=== PATIENT | female | born 1975 | race Caucasian/White ===

== ENCOUNTER 2018-04-09 12:34 | Emergency (ER) | payer OTHER ==
[2018-04-09] MEDS: SOD CHLORIDE 0.9% 1,000 ML IV (14:58)
[2018-04-09] MEDS: METOCLOPRAMIDE 10 MG INJ IV (14:59)
[2018-04-09] MEDS: DIPHENHYDRAMINE 50 MG INJ IV (14:59)
[2018-04-09 15:06] LABS: HEMATOCRIT 42.7 % (37.0-47.0); HEMOGLOBIN 13.9 g/dl (12.0-16.0); MEAN CORPUSCULAR HEMOGLOBIN 29.5 pg (29.0-33.0); MEAN CORPUSCULAR HGB CONC 32.6 g/dl (32.0-37.0); MEAN CORPUSCULAR VOLUME 90.7 fl (82.0-101.0); PLATELET COUNT 282 10^3/UL (140-415); RED BLOOD COUNT 4.71 10^6/ul (4.20-5.40); RED CELL DISTRIBUTION WIDTH 12.7 % (11.5-14.5)
[2018-04-09] MEDS: KETOROLAC 30 MG INJ IV (15:14)
[2018-04-09 15:23] LABS: ANION GAP 6 (5-13); BLOOD UREA NITROGEN 8 mg/dl (7-20); CALCIUM 8.7 mg/dl (8.4-10.2); CARBON DIOXIDE 27 mmol/L (21-31); CHLORIDE 105 mmol/L (97-110); CREATININE 0.49 mg/dl (0.44-1.00); Estimated GFR > 60 mL/min (>60); GLUCOSE 92 mg/dl (70-220); POTASSIUM 4.4 mmol/L (3.5-5.1); SODIUM 138 mmol/L (135-144)
[2018-04-09 15:32] LABS: PROTIME 12.2 Sec (11.9-14.9)
[2018-04-09 15:33] LABS: PARTIAL THROMBOPLASTIN TIME 28.6 Sec (23.0-35.0)
[2018-04-09 15:49] LABS: ADD MAN DIFF? YES; POSITIVE DIFF @See below
[2018-04-09 16:15] LABS: BAND NEUTROPHILS #M 0.4 10^3/ul (0.0-0.6); BAND NEUTROPHILS % (M) 7 % (0-4); LYMPHOCYTES #M 1.2 10^3/ul (0.8-2.9); LYMPHOCYTES % (M) 21 % (15-51); MONOCYTE #M 0.4 10^3/ul (0.3-0.9); MONOCYTES % (M) 7 % (0-11); MYELOCYTES % (M) 1 % (0-0); PLASMA CELLS #M 0.1 10^3/ul (0.0-0.0); PLASMAC%(M) 2 % (0); REACTIVE LYMPHOCYTES #M 0.7 10^3/ul (0.0-0.0); REACTIVE LYMPHOCYTES% (M) 13 % (0-0); SEGMENTED NEUTROPHILS (M) % 49 % (39-77); SMUDGE%M 37 % (0-0)
== END 2018-04-09 16:05 | disposition home or self-care (01) ==
LOC: FTE 12:34
DX: R51 Headache (principal); F17.210 Nicotine dependence, cigarettes, uncomplicated
CPT/HCPCS: 36415; 70450; 80048; 81025; 85025; 85610; 85730; 96361; 96374; 96375; 99285-25

== ENCOUNTER 2018-09-07 15:31 | Emergency (ER) | payer OTHER ==
[2018-09-07] MEDS: TRIMETHOPRIM/SULFAMETHOX (DS) TAB PO (16:19)
[2018-09-07] MEDS: IBUPROFEN 600 MG TAB PO (16:19)
[2018-09-07] MEDS: CEPHALEXIN 500 MG CAP PO (16:23)
== END 2018-09-07 16:37 | disposition home or self-care (01) ==
LOC: FTE 15:31
DX: N76.4 Abscess of vulva (principal); Z87.891 Personal history of nicotine dependence
CPT/HCPCS: 99284; Z7502